=== PATIENT | male | born 1940 | race Caucasian/White ===

== ENCOUNTER 2020-01-29 11:12 | Outpatient (REF) | payer MEDICARE, SELFPAY ==
[2020-01-29 13:01] LABS: Hematocrit 38.5 % (42-52); Hemoglobin 12.4 g/dl (14.0-18.0); Mean Corpuscular HGB Conc 32.2 g/dl (31.0-36.0); Mean Corpuscular Volume 102.4 fL (80-98); Mean Platelet Volume 11.3 fL (9.4-12.4); Platelet Count 145 X10*3/uL (160-400); Red Blood Count 3.76 X10*6/uL (4.60-5.80); Red Cell Distribution Width 14.2 % (11.0-16.0); White Blood Count 9.6 X10*3/uL (4.8-10.8)
[2020-01-29 13:33] LABS: Iron 121 mcg/dL (45-160); Percent Iron Saturation 31 % (15-50); Total Iron Binding Capacity 389 mcg/dL (228-428); Unsaturated Iron Binding 268 ug/dL
[2020-01-29 13:57] LABS: Ferritin 30 ng/mL (20-250)
[2020-01-29 14:03] LABS: Vitamin B12 381 pg/mL (200-900)
[2020-01-29 14:07] LABS: Estimated Average Glucose 117 mg/dL; Hemoglobin A1c % 5.7 %
== END 2020-01-29 11:13 | disposition home or self-care (01) ==
LOC: HO.MANLDS 11:12
PROVIDERS: PCP Internal Medicine; Visit Provider Internal Medicine
DX: G60.9 Hereditary and idiopathic neuropathy, unspecified (principal)
CPT/HCPCS: 36415; 82607; 82728; 83036; 83540; 85027